=== PATIENT | male | born 1960 | race Caucasian/White ===

== ENCOUNTER → 2017-05-31 | Outpatient (CLI) | payer OTHER ==
[~2017-05-31] MED LIST: ASPIR 8181 MG PO; CRESTOR20 MG PO; OMEPRAZOLE 20 M20 M1 PO
--- NOTE | ~2017-05-31 | EKG ---
[place] [address] [address] [facility] [place] [address] ELECTROCARDIOGRAM REPORT Name: KODY SHAFFER Room #: [facility]#: [id number] Admission: 05/31/17 Attend Phys: Sai Santos MD Discharge: Date of : 60 Report #: [id number] THIS REPORT FOR: //name// [facility] Test Date: 2017-05-31 Test Time: 13:17:54 Pat Name: KODY SHAFFER Department: Room: Gender: M [employer] Infrastructure Architect: BRYANT : 1960 Requested By: Sai Santos Order Number: [id number] MD: Mani Jimenez Measurements Intervals [place] Rate: 47 P: 32 VT: 158 QRS: -17 QRSD: 123 T: 11 QT: 455 QTc: 403 Interpretive Statements Sinus bradycardia IVCD, consider atypical RBBB Nonspecific T wave abnormality Baseline wander in lead(s) V3 No previous ECG available for comparison Electronically Signed On 05-31-2017 17:35:13 [employer]ERTAK[employer] HEL[employer] by Mani Jimenez [email or web address] <ELECTRONICALLY SIGNED> By: Mani Jimenez MD, [facility] 05/31/17 1735 16 Mani Jimenez MD, FACC /EPI
== END ==
LOC: LITH 10:14
DX: N20.0 Calculus of kidney (principal); E78.00 Pure hypercholesterolemia, unspecified; F32.89 Other specified depressive episodes; F41.8 Other specified anxiety disorders; K21.9 Gastro-esophageal reflux disease without esophagitis; Z98.890 Other specified postprocedural states; Z79.82 Long term (current) use of aspirin; Z95.5 Presence of coronary angioplasty implant and graft; Z79.899 Other long term (current) drug therapy